=== PATIENT | female | born 1960 | race Hispanic/Latino ===

== ENCOUNTER → 2024-04-10 | Outpatient (CLI) | payer OTHER ==
--- NOTE | 2024-04-10 14:25 | HMCIMG ---
EXAM: LUMBAR SPINE 2-3VWS REASON: LOW BACK PAIN, UNSPECIFIED. COMPARISON: None. TECHNIQUE: 3 views of the lumbar spine were obtained. FINDINGS: There is 5 mm anterior subluxation of L3 on L4. Remaining interspaces are normally aligned interspace heights are preserved. There are no compression fractures. Soft tissues appear unremarkable. IMPRESSION: 1. 5 mm anterior subluxation L3 on L4.
== END | disposition home or self-care (01) ==
LOC: RAH 12:10
PROVIDERS: ATTEND Internal Medicine
DX: S33.130A Subluxation of L3/L4 lumbar vertebra, initial encounter (principal); M54.50 Low back pain, unspecified; X58.XXXA Exposure to other specified factors, initial encounter; Y93.89 Activity, other specified; Y92.89 Other specified places as the place of occurrence of the external cause; Y99.8 Other external cause status
CPT/HCPCS: 72100